=== PATIENT | female | born 1965 | race Caucasian/White ===

== ENCOUNTER 2016-08-07 09:40 | Emergency (ER) | payer SELFPAY ==
[2016-08-07 10:23] LABS: BASOPHILS 0.1 % (0.0-2.0); EOSINOPHILS 1.9 % (0-7); HEMATOCRIT 44.8 % (36.0-48.0); HEMOGLOBIN 14.6 g/dL (12-16); IMMATURE GRANULOCYTES 0.2 % (0-5); LYMPHOCYTES 21.8 % (15-50); MCH 31.5 pg (26.0-34.0); MCHC 32.6 g/dL (31.0-37.0); MCV 96.8 fL (80.0-100.0); MEAN PLATELET VOLUME 10.8 fL (7.4-10.4); MONOCYTES 5.4 % (2-11); NEUTROPHILS 70.6 % (40-80); PLATELET COUNT 395 10x3/uL (130-400); RBC 4.63 10x6/uL (4.00-5.40); RDW 13.2 % (11.5-14.5); WBC 11.3 10x3/uL (4.8-10.8)
[2016-08-07 10:52] LABS: APPEARANCE CLOUDY (CLEAR); BILIRUBIN NEGATIVE (NEGATIVE); COLOR YELLOW (YELLOW); GLUCOSE NEGATIVE (NEGATIVE); KETONE NEGATIVE (NEGATIVE); LEUKOCYTE ESTERASE 2+ (NEGATIVE); NITRITE NEGATIVE (NEGATIVE); PROTEIN TRACE mg/dL (NEGATIVE); UROBILINOGEN NORMAL (NORMAL)
[2016-08-07 10:54] LABS: BACTERIA MODERATE /hpf (NONE SEEN); MUCUS <1+ /lpf (NONE SEEN); WHITE CELLS - URINE 25-50 /hpf (0-5)
== END 2016-08-07 12:55 | disposition home or self-care (01) ==
LOC: D.ER 09:40
PROVIDERS: Emergency Medicine
DX: A60.00 Herpesviral infection of urogenital system, unspecified (principal); A59.01 Trichomonal vulvovaginitis; N93.8 Other specified abnormal uterine and vaginal bleeding

== ENCOUNTER → 2018-12-03 12:49 | Outpatient (CLI) | payer MEDICAID ==
[~2018-12-03 12:49] MED LIST: ADVAIR 250/501 DISK INH; FUROSEMIDE20 MG PO; HYDROCODON-ACE1 EA10 PO; PHENERGAN25 M1 PO; ZOFRAN8 MG PO
[2018-12-12 12:17] VITALS: BMI 33.6
== END | disposition home or self-care (01) ==
LOC: D.RT 12-02 07:00
PROVIDERS: ATTEND Thoracic Surgery (Cardiothoracic Vascular Surgery)
DX: C34.90 Malignant neoplasm of unspecified part of unspecified bronchus or lung (principal)

== ENCOUNTER → 2018-12-04 06:47 | Day surgery (SDC) | payer MEDICAID ==
[~2018-12-04] VITALS: Ht 149.9 cm; Wt 73.9 kg
[2018-12-04 07:18] LABS: HEMATOCRIT 34.8 % (36.0-48.0); HEMOGLOBIN 11.4 g/dL (12-16); MCH 30.1 pg (26.0-34.0); MCHC 32.8 g/dL (31.0-37.0); MCV 91.8 fL (80.0-100.0); MEAN PLATELET VOLUME 9.7 fL (7.4-10.4); RBC 3.79 10x6/uL (4.00-5.40); RDW 17.4 % (11.5-14.5); WBC 4.6 10x3/uL (4.8-10.8)
[2018-12-04 07:24] LABS: APTT 26.1 SECONDS (22.8-39.4); INR 1.03 (0.85-1.17)
[2018-12-04 07:30] LABS: APPEARANCE CLOUDY (CLEAR); BILIRUBIN NEGATIVE (NEGATIVE); COLOR YELLOW (YELLOW); GLUCOSE NEGATIVE (NEGATIVE); KETONE NEGATIVE (NEGATIVE); NITRITE NEGATIVE (NEGATIVE); PROTEIN NEGATIVE (NEGATIVE); RED CELLS - URINE 0-5 /hpf (0-5); SPECIFIC GRAVITY 1.015 (1.005-1.020); UROBILINOGEN NORMAL (NORMAL); WHITE CELLS - URINE 0-5 /hpf (0-5)
[2018-12-04 07:31] LABS: BACTERIA MANY /hpf (NONE SEEN); MUCUS <1+ /lpf (NONE SEEN)
[2018-12-04 07:52] LABS: CALC OSMOLALITY 277 mosm/kg (275-300); CALCIUM 8.9 mg/dL (8.5-10.1); CARBON DIOXIDE 27.1 mmol/L (21.0-32.0); CHLORIDE - SERUM 103 mmol/L (98-107); CREATININE - SERUM 0.8 mg/dL (0.6-1.3); GLUCOSE 104 mg/dL (74-106); POTASSIUM - SERUM 4.1 mmol/L (3.5-5.1); SODIUM 139 mmol/L (136-145); UREA NITROGEN 13 mg/dL (7-18); eGFR NON AFRICAN AMERICAN 79 mL/min (90-120)
[2018-12-04 07:53] VITALS: BP 110/67; Ht 149.9 cm; Wt 73.9 kg
--- NOTE | 2018-12-04 09:02 | NUR ---
0900-PHONED [facility]-SPOKE WITH KALEB. BACTRUM DS, ONE PO BID FOR 7 DAYS-FIRST DOSE TO BE GIVEN BY OUTPATIENT STAFF PRIOR TO DISCHARGE.
== END | disposition home or self-care (01) ==
LOC: D.OPS 12-02 11:00
PROVIDERS: ATTEND Thoracic Surgery (Cardiothoracic Vascular Surgery)
DX: C34.90 Malignant neoplasm of unspecified part of unspecified bronchus or lung (principal); Z53.9 Procedure and treatment not carried out, unspecified reason; Z01.812 Encounter for preprocedural laboratory examination

== ENCOUNTER 2018-12-12 10:14 | Outpatient (CLI) | payer MEDICAID ==
[~2018-12-12] VITALS: Ht 149.9 cm; Wt 75.5 kg
[2018-12-12 12:17] VITALS: BP 122/70; Ht 149.9 cm; Wt 75.5 kg
--- NOTE | 2018-12-12 12:23 | NUR ---
1100 IN AND OUT CATH USING STERILE TECHNIQUE FOR URINALYSIS. URINE IN COLLECTION BOTTLE AND SENT TO LAB
[2018-12-12 13:22] LABS: APPEARANCE HAZY (CLEAR); BACTERIA FEW /hpf (NONE SEEN); BILIRUBIN NEGATIVE (NEGATIVE); COLOR YELLOW (YELLOW); EPITHELIAL CELLS 0-5 /hpf (0-5); GLUCOSE NEGATIVE (NEGATIVE); HYALINE CAST RARE /lpf (NONE SEEN); KETONE NEGATIVE (NEGATIVE); MUCUS >1+ /lpf (NONE SEEN); NITRITE NEGATIVE (NEGATIVE); PROTEIN NEGATIVE (NEGATIVE); RED CELLS - URINE 0-5 /hpf (0-5); SPECIFIC GRAVITY 1.025 (1.005-1.020); UROBILINOGEN NORMAL (NORMAL); WHITE CELLS - URINE RARE /hpf (0-5)
== END 2018-12-12 11:17 | disposition home or self-care (01) ==
LOC: D.OPS 10:14
PROVIDERS: ATTEND Thoracic Surgery (Cardiothoracic Vascular Surgery)
DX: N39.0 Urinary tract infection, site not specified (principal)

== ENCOUNTER 2019-01-23 08:00 | Outpatient (CLI) | payer MEDICAID ==
[2018-12-12 12:17] VITALS: BMI 33.6
[2019-01-23 11:33] LABS: HEMATOCRIT 34.7 % (36.0-48.0); HEMOGLOBIN 11.6 g/dL (12-16); MCH 32.7 pg (26.0-34.0); MCHC 33.4 g/dL (31.0-37.0); MCV 97.7 fL (80.0-100.0); MEAN PLATELET VOLUME 9.5 fL (7.4-10.4); RBC 3.55 10x6/uL (4.00-5.40); RDW 15.9 % (11.5-14.5); WBC 4.9 10x3/uL (4.8-10.8)
[2019-01-23 11:38] LABS: INR 0.99 (0.85-1.17); PROTIME 12.6 SECONDS (11.6-15.0)
[2019-01-23 11:39] LABS: APTT 27.1 SECONDS (22.8-39.4)
[2019-01-23 11:44] LABS: ALBUMIN 3.4 g/dL (3.4-5.0); ALKALINE PHOSPHATASE 128 U/L (46-116); ALT (SGPT) 20 U/L (10-68); BILIRUBIN - TOTAL 0.25 mg/dL (0.2-1.3); CALC OSMOLALITY 280 mosm/kg (275-300); CARBON DIOXIDE 25.9 mmol/L (21.0-32.0); CHLORIDE - SERUM 106 mmol/L (98-107); CREATININE - SERUM 0.8 mg/dL (0.6-1.3); GLUCOSE 120 mg/dL (74-106); POTASSIUM - SERUM 3.7 mmol/L (3.5-5.1); SODIUM 140 mmol/L (136-145); UREA NITROGEN 16 mg/dL (7-18); eGFR NON AFRICAN AMERICAN 79 mL/min (90-120)
[2019-01-23 12:16] LABS: APPEARANCE SL CLDY (CLEAR); BILIRUBIN NEGATIVE (NEGATIVE); COLOR YELLOW (YELLOW); GLUCOSE NEGATIVE (NEGATIVE); KETONE SMALL mg/dL (NEGATIVE); NITRITE NEGATIVE (NEGATIVE); PROTEIN NEGATIVE (NEGATIVE); SPECIFIC GRAVITY 1.025 (1.005-1.020); UROBILINOGEN NORMAL (NORMAL)
[2019-01-23 12:17] LABS: RED CELLS - URINE 0-5 /hpf (0-5); WHITE CELLS - URINE 0-5 /hpf (0-5)
[2019-01-23 12:18] LABS: BACTERIA MODERATE /hpf (NONE SEEN); CALCIUM OXALATE CRYSTALS 25-50 /hpf (NONE SEEN); MUCUS <1+ /lpf (NONE SEEN)
== END 2019-01-23 08:01 | disposition home or self-care (01) ==
LOC: D.OPS 08:00 → D.PAN 01-27 07:30 → EDSTATUS 01-27 07:30 → D.OPS 01-27 07:30
PROVIDERS: ATTEND Thoracic Surgery (Cardiothoracic Vascular Surgery)
DX: C34.92 Malignant neoplasm of unspecified part of left bronchus or lung (principal); Z53.9 Procedure and treatment not carried out, unspecified reason; G47.30 Sleep apnea, unspecified; Z87.891 Personal history of nicotine dependence; Z79.891 Long term (current) use of opiate analgesic; Z79.899 Other long term (current) drug therapy; Z01.812 Encounter for preprocedural laboratory examination

== ENCOUNTER 2019-01-30 21:18 | Outpatient (CLI) | payer MEDICAID ==
[2019-01-30 21:07] VITALS: BMI 33.6
--- NOTE | 2019-01-30 22:05 | NUR ---
PT ARRIVED TO HAVE AN IN AND OUT CATH FOR URINE WITH C&S. WE WERE ABLE TO CATH HER EASILY AND OBTAINED THE SAMPLE WHICH WE SENT TO THE LAB. AFTER PT CLEANED UP WITH WIPES SHE WALKED OUT TO GO HOME. NO PROBLEMS ENCOUNTERED. VERY PLEASANT LADY.
[2019-01-30 22:38] LABS: APPEARANCE CLEAR (CLEAR); COLOR DK YELLOW (YELLOW); GLUCOSE NEGATIVE (NEGATIVE); KETONE NEGATIVE (NEGATIVE); NITRITE NEGATIVE (NEGATIVE); PROTEIN NEGATIVE (NEGATIVE); SPECIFIC GRAVITY 1.025 (1.005-1.020); UROBILINOGEN NORMAL (NORMAL)
[2019-01-30 22:39] LABS: BACTERIA NONE SEEN /hpf (NONE SEEN); BILIRUBIN NEGATIVE (NEGATIVE); RED CELLS - URINE 0-5 /hpf (0-5); WHITE CELLS - URINE 0-5 /hpf (0-5)
== END 2019-01-30 21:45 ==
LOC: D.OPS 21:18 → D.M3 21:23 → D.OPS 21:45
PROVIDERS: Thoracic Surgery (Cardiothoracic Vascular Surgery); ATTEND Orthopaedic Surgery
DX: N39.0 Urinary tract infection, site not specified (principal)

== ENCOUNTER 2019-02-05 08:33 | Inpatient (IN) | payer MEDICAID ==
[~2019-02-05] VITALS: Ht 149.9 cm; Wt 86.6 kg
[2019-02-05] MEDS ORDERED: ALBUTEROL SULF8.5 GM INH (08:55)
[2019-02-05] MEDS ORDERED: [UNRECOGNIZED DRUG - OTHER] PO (08:56)
[2019-02-05 11:45] LABS: HEMATOCRIT 35.3 % (36.0-48.0); MCH 33.1 pg (26.0-34.0); MCV 97.5 fL (80.0-100.0); MEAN PLATELET VOLUME 9.9 fL (7.4-10.4); RBC 3.62 10x6/uL (4.00-5.40); RDW 14.6 % (11.5-14.5); WBC 8.3 10x3/uL (4.8-10.8)
[2019-02-05 11:58] LABS: ALBUMIN 3.3 g/dL (3.4-5.0); ALKALINE PHOSPHATASE 136 U/L (46-116); ALT (SGPT) 49 U/L (10-68); BILIRUBIN - TOTAL 0.21 mg/dL (0.2-1.3); CALC OSMOLALITY 280 mosm/kg (275-300); CALCIUM 8.8 mg/dL (8.5-10.1); CARBON DIOXIDE 27.1 mmol/L (21.0-32.0); CHLORIDE - SERUM 105 mmol/L (98-107); CREATININE - SERUM 0.8 mg/dL (0.6-1.3); GLUCOSE 121 mg/dL (74-106); POTASSIUM - SERUM 3.8 mmol/L (3.5-5.1); PROTEIN - SERUM 7.2 g/dL (6.4-8.2); SODIUM 140 mmol/L (136-145); UREA NITROGEN 16 mg/dL (7-18); eGFR NON AFRICAN AMERICAN 79 mL/min (90-120)
[2019-02-05 12:10] LABS: APTT 27.8 SECONDS (22.8-39.4); PROTIME 12.7 SECONDS (11.6-15.0)
[2019-02-09] VITALS (18 sets, daily range): BP systolic 101–126; BP diastolic 42–71; BMI 36.0; BMI 37.4
[2019-02-10] VITALS (20 sets, daily range): BP systolic 94–134; BP diastolic 51–78
[2019-02-10 06:17] LABS: HEMATOCRIT 32.2 % (36.0-48.0); HEMOGLOBIN 10.6 g/dL (12-16); MCH 32.4 pg (26.0-34.0); MCHC 32.9 g/dL (31.0-37.0); MCV 98.5 fL (80.0-100.0); RBC 3.27 10x6/uL (4.00-5.40); RDW 14.4 % (11.5-14.5); WBC 14.5 10x3/uL (4.8-10.8)
[2019-02-10 06:36] LABS: ALBUMIN 2.4 g/dL (3.4-5.0); ALKALINE PHOSPHATASE 105 U/L (46-116); ALT (SGPT) 63 U/L (10-68); BILIRUBIN - TOTAL 0.31 mg/dL (0.2-1.3); CALC OSMOLALITY 283 mosm/kg (275-300); CALCIUM 7.9 mg/dL (8.5-10.1); CARBON DIOXIDE 27.8 mmol/L (21.0-32.0); CHLORIDE - SERUM 107 mmol/L (98-107); CREATININE - SERUM 0.8 mg/dL (0.6-1.3); GLUCOSE 120 mg/dL (74-106); POTASSIUM - SERUM 4.1 mmol/L (3.5-5.1); SODIUM 141 mmol/L (136-145); UREA NITROGEN 18 mg/dL (7-18); eGFR NON AFRICAN AMERICAN 79 mL/min (90-120)
--- NOTE | 2019-02-10 13:45 | OP ---
PATIENT NAME: TRISTON KOWALSKI MEDICAL RECORD: [id number] :63 LOCATION:[facility].CV08 ADMISSION DATE:02/09/19 SURGEON: RODO MARTIN MD DATE OF OPERATION: 02/09/2019 SURGEON: Rodo Martin MD PHYSICAL METALLURGIST: Chintan Cabral. OPERATION PERFORMED: 1. Left thoracotomy with left upper lobe lobectomy. 2. Mediastinal lymph node dissection. 3. Bronchoscopy. PREOPERATIVE DIAGNOSIS: Non-small cell cancer, left upper lobe. POSTOPERATIVE DIAGNOSIS: Non-small cell cancer, left upper lobe. ANESTHESIA: General endotracheal anesthesia. ESTIMATED BLOOD LOSS: 100 cc. COMPLICATIONS: None. SPECIMENS: 1. Left upper lobe. 2. Mediastinal lymph node stations from the inferior pulmonary ligament, intralobar, subcarinal, and AP window for permanent specimen. OPERATIVE COMPLICATIONS: None. CONDITION: Stable. DISPOSITION: ICU. OPERATIVE FINDINGS: 1. Good tube position by bronchoscopy with no endobronchial lesion. 2. Dense tumor adherent to the main pulmonary artery, required shaving the branches of the pulmonary artery and primarily closing the pulmonary artery. The bronchus was airtight under water. 3. Multiple anthracotic lymph nodes. INDICATIONS: Status post chemotherapy for stage IIIA nonsmall cell lung cancer. PROCEDURE IN DETAIL: The patient was brought to the operative suite. General anesthesia was obtained. Double lumen endotracheal tube was placed. Position was confirmed with bronchoscopy. The patient turned into the right lateral decubitus position with appropriate padding. Left posterolateral thoracotomy incision was made. A trapdoor type incision was made by removing a portion of the 6th rib posteriorly entering the pleura. There was no significant pleural effusion. Inferior pulmonary ligament was taken down. The hilum was freed. Branches to the lower lobe of the pulmonary artery were identified in the major fissure and then branches into the lingula were divided between staple device. Remainder of the branches were densely adherent in the tumor and the pulmonary vein from the upper lobe was densely applied to the bronchus. Individually, the OPERATIVE REPORT [id number] TRISTON KOWLASKI pulmonary artery branches were taken down with pursestring suture and oversew on the pulmonary artery until the lung had been freed. Then, half of the pulmonary vein was stapled, the other half was divided using a clamp and oversewn. Finally, the bronchus was clamped. Lower lobe was briefly ventilated. The stapler was applied. The specimen was removed. All the pulmonary artery and vein oversew sites were inspected and two of them were additionally oversewn with 6-0 Prolene. Sterile water was used for hemostasis and to check the bronchus underwater. Lymph nodes were removed from the four areas noted above, marked with clips. Chest tubes were placed apically and inferiorly. Lung was reinflated. Chest was closed with pericostal sutures to running layers of the muscle, to subcutaneous-subcuticular skin and Dermabond. The patient returned to the supine position, extubated and to ICU in good condition. TRANSINT:[id number] Voice Confirmation ID: [id number] DOCUMENT ID: [id number] RODO MARTIN MD at 1345 CC: NATALIIA ELIAS MD [id number] DICTATION DATE: 02/09/19 1456 SECTION HAND: 02/09/19 1609 ADM IN [place] [id number] [place] [id number]
--- NOTE | 2019-02-10 15:46 | MORECARE ---
CASE MANAGEMENT DISCHARGE SUMMARY PATIENT: TRISTON KOWALSKI UNIT: [id number] ADM DATE: 02/09/19 AGE: 54 : 63 SEX: F ROOM/BED: [facility] AUTHOR: DARLINE MINA PHYSICIAN: REFERRING PHYSICIAN: EUGENE MARTIN MD DATE OF SERVICE: 02/10/19 Discharge Plan Patient Name: TRISTON KOWALSKI Facility: [facility]:[place] : 1965 Planned Disposition: Inpatient Rehab Anticipated Discharge Date: Discharge Date: Expected LOS: Initial Reviewer: [email or web address] Initial Review Date: 02/10/2019 Generated: 02/10/19 4:46 pm Patient Name: TRISTON KOWALSKI Page [id number] at 1546 All edits/amendments must be made on the electronic document DICTATION DATE: 02/10/19 1546 CLAIM SERVICE REPRESENTATIVE: LUPE 02/10/19 1546 RPT#: [id number] DC DATE: STATUS: ADM IN [facility] [address] [place] [address] END OF REPORT
--- NOTE | 2019-02-10 15:56 | MORECARE ---
CASE MANAGEMENT DISCHARGE SUMMARY PATIENT: TRISTON KOWALSKI UNIT: [id number] ADM DATE: 02/09/19 AGE: 54 : 63 SEX: F ROOM/BED: [facility] AUTHOR: DARLINE MINA PHYSICIAN: REFERRING PHYSICIAN: EUGENE MARTIN MD DATE OF SERVICE: 02/10/19 Discharge Plan Patient Name: TRISTON KOWALSKI [facility] : 1965 Planned Disposition: Inpatient Rehab Anticipated Discharge Date: Discharge Date: Expected LOS: Initial Reviewer: [email or web address] Initial Review Date: 02/10/2019 Generated: 02/10/19 4:56 pm DCPIA - Discharge Planning Initial Assessment Updated by [email or web address]: Reyna Blackmon on 02/10/19 3:55 pm * Is the patient Alert and Oriented? Yes * How many steps to enter\exit or inside your home? * PCP NO PCP - DR MORA -ONC * Pharmacy [facility] / [facility] * Preadmission Environment Home with Family * ADLs Independent * Equipment None * List name and contact numbers for known caregivers / representatives who currently or will assist patient after discharge: WADE KOWALSKI - DAUGHTER- [phone] * Verbal permission to speak to the caregivers and representatives has been obtained from the patient. Yes * Community resources currently utilized None * Additional services required to return to the preadmission environment? No * Can the patient safely return to the preadmission environment? Yes * Has this patient been hospitalized within the prior 30 days at any hospital? No Last DP export: 02/10/19 2:46 p Patient Name: TRISTON KOWALSKI Page [id number] at 1556 All edits/amendments must be made on the electronic document DICTATION DATE: 02/10/191555 GAS PLANT DISPATCHER: LUPE 02/10/19 155 RPT#: [id number] DC DATE: STATUS: ADM IN [facility] [address] [place] [address] END OF REPORT
--- NOTE | 2019-02-10 16:06 | MORECARE ---
CASE MANAGEMENT DISCHARGE SUMMARY PATIENT: TRISTON KOWALSKI UNIT: [id number] ADM DATE: 02/09/19 AGE: 54 : 63 SEX: F ROOM/BED: [facility] AUTHOR: KEELEY,DOC PHYSICIAN: REFERRING PHYSICIAN: EUGENE MARTIN MD DATE OF SERVICE: 02/10/19 Discharge Plan Patient Name: TRISTON KOWALSKI Facility: [facility]:[place] : 1965 Planned Disposition: Inpatient Rehab Anticipated Discharge Date: Discharge Date: Expected LOS: Initial Reviewer: [email or web address] Initial Review Date: 02/10/2019 Generated: 02/10/19 5:06 pm Comments DCP- Discharge Planning Updated by [email or web address]: Reyna Blackmon on 02/10/19 3:[address] Patient Name: TRISTON KOWALSKI Admission Status: Urgent Accout number: [id number] Admission Date: 02-09-2019 : 1965 Admission Diagnosis: Attending: EUGENE MARTIN Current LOS: 1 Anticipated DC Date: Planned Disposition: Inpatient Rehab Primary Insurance: [place] PR[employer] OPTIONS [employer] Discharge Planning Comments: CM met with patient at bedside after explaining CM role and obtaining verbal consent. Patient lives at a home either with friends or daughter where she is independent with her care. Patient would like inpatient rehab upon discharge or SNF for rehab. After patient regains her strength her daughter stated she could stay with her. Patient will need hospital bed because she only has a mattress on floor at daughter's home. Patient feels this would be a safe discharge. CM discussed availability / needs of home health and medical equipment. Patient denies any discharge needs at this time. Patient states she will have family drive her home upon discharge. CM with [employer] Geena Farnsworth RN came to visit with patient at bedside while CM conducted d/c planning eval. CM will continue to follow and assist as needed with discharge planning / needs. Architect Marine: Reyna Blackmon DCPIA - Discharge Planning Initial Assessment Updated by [email or web address]: Reyna Blackmon on 02/10/19 3:55 pm * Is the patient Alert and Oriented? Yes * How many steps to enter\exit or inside your home? * PCP NO PCP - DR MORA -ONC * Pharmacy [facility] [address] / [facility] * Preadmission Environment Home with Family * ADLs Independent * Equipment None * List name and contact numbers for known caregivers / representatives who currently or will assist patient after discharge: WADE KOWALSKI - DAUGHTER- [phone] * Verbal permission to speak to the caregivers and representatives has been obtained from the patient. Yes * Community resources currently utilized None * Additional services required to return to the preadmission environment? No * Can the patient safely return to the preadmission environment? Yes * Has this patient been hospitalized within the prior 30 days at any hospital? No Last DP export: 02/10/19 2:56 p Patient Name: TRISTON KOWALSKI Page 39266 at 1606 All edits/amendments must be made on the electronic document DICTATION DATE: 02/10/191605 MACHINE OPERATOR FARMWORKER: LUPE 02/10/191605 RPT#: [id number] DC DATE: STATUS: ADM IN [facility] [address] [place] [address] END OF REPORT
[2019-02-11] VITALS (24 sets, daily range): BP systolic 88–134; BP diastolic 50–83
[2019-02-11 06:31] LABS: HEMOGLOBIN 9.7 g/dL (12-16); MCH 32.6 pg (26.0-34.0); MCHC 32.3 g/dL (31.0-37.0); MEAN PLATELET VOLUME 9.5 fL (7.4-10.4); RBC 2.98 10x6/uL (4.00-5.40); RDW 14.5 % (11.5-14.5)
[2019-02-11 06:44] LABS: MCV 100.7 fL (80.0-100.0); WBC 8.6 10x3/uL (4.8-10.8)
[2019-02-11 06:55] LABS: ALBUMIN 2.4 g/dL (3.4-5.0); ALKALINE PHOSPHATASE 94 U/L (46-116); ALT (SGPT) 52 U/L (10-68); BILIRUBIN - TOTAL 0.32 mg/dL (0.2-1.3); CALC OSMOLALITY 280 mosm/kg (275-300); CALCIUM 7.8 mg/dL (8.5-10.1); CARBON DIOXIDE 28.1 mmol/L (21.0-32.0); CHLORIDE - SERUM 105 mmol/L (98-107); CREATININE - SERUM 0.8 mg/dL (0.6-1.3); GLUCOSE 126 mg/dL (74-106); PROTEIN - SERUM 5.8 g/dL (6.4-8.2); SODIUM 138 mmol/L (136-145); UREA NITROGEN 20 mg/dL (7-18); eGFR NON AFRICAN AMERICAN 79 mL/min (90-120)
--- NOTE | 2019-02-11 17:46 | MORECARE ---
CASE MANAGEMENT DISCHARGE SUMMARY PATIENT: TRISTON KOWALSKI UNIT: [id number] ADM DATE: 02/09/19 AGE: 54 : 63 SEX: F ROOM/BED: D.08 AUTHOR: KEELEY,DARLINE PHYSICIAN: REFERRING PHYSICIAN: EUGENE MARTIN MD DATE OF SERVICE: 02/11/19 Discharge Plan Patient Name: TRISTON KOWALSKI Facility: [facility]:[place] : 1965 Planned Disposition: Inpatient Rehab Anticipated Discharge Date: Discharge Date: Expected LOS: Initial Reviewer: [email or web address] Initial Review Date: 02/10/2019 Generated: 02/11/19 6:45 pm Comments DCP- Discharge Planning Updated by [email or web address]: Reyna Blackmon on 02/11/19 4:[address] CM spoke with [facility] inpatient rehab. [facility] stated that they do not accept patient's insurance. Patient will need to go to [facility] or another facility upon discharge. CM will relate this information to patient, nursing staff and physician. CM will continue to follow and assist as needed with discharge planning / needs. DCP- Discharge Planning Updated by [email or web address]: Reyna Blackmon on 02/10/19 3:[address] Patient Name: TRISTON KOWALSKI Admission Status: Urgent Accout number: [id number] Admission Date: 02-09-2019 : 1965 Admission Diagnosis: Attending: EUGENE MARTIN Current LOS: 1 Anticipated DC Date: Planned Disposition: Inpatient Rehab Primary Insurance: [facility] PRIVATE OPTIONS [facility] Discharge Planning Comments: CM met with patient at bedside after explaining CM role and obtaining verbal consent. Patient lives at a home either with friends or daughter where she is independent with her care. Patient would like inpatient rehab upon discharge or SNF for rehab. After patient regains her strength her daughter stated she could stay with her. Patient will need hospital bed because she only has a mattress on floor at daughter's home. Patient feels this would be a safe discharge. CM discussed availability / needs of home health and medical equipment. Patient denies any discharge needs at this time. Patient states she will have family drive her home upon discharge. CM with [employer] Geena Javad, RN came to visit with patient at bedside while CM conducted d/c planning eval. CM will continue to follow and assist as needed with discharge planning / needs. Mica Parts Sprayer: Reyna SANDHU - Discharge Planning Initial Assessment Updated by [email or web address]: Reyna Blackmon on 02/10/19 3:55 pm * Is the patient Alert and Oriented? Yes * How many steps to enter\exit or inside your home? * PCP NO PCP - DR MORA -ONC * Pharmacy [facility] / [facility] * Preadmission Environment Home with Family * ADLs Independent * Equipment None * List name and contact numbers for known caregivers / representatives who currently or will assist patient after discharge: WADE KOWALSKI - DAUGHTER- [phone] * Verbal permission to speak to the caregivers and representatives has been obtained from the patient. Yes * Community resources currently utilized None * Additional services required to return to the preadmission environment? No * Can the patient safely return to the preadmission environment? Yes * Has this patient been hospitalized within the prior 30 days at any hospital? No Last DP export: 02/10/19 3:06 p Patient Name: TRISTON KOWALSKI Page 01611 at 1746 All edits/amendments must be made on the electronic document DICTATION DATE: 02/11/191744 ROLL SHOP SUPERVISOR: LUPE 02/11/191744 RPT#: [id number] DC DATE: STATUS: ADM IN [facility] [address] [place] [address] END OF REPORT
[2019-02-12] VITALS (25 sets, daily range): BP systolic 92–128; BP diastolic 46–74; BMI 39.4
[2019-02-12 06:21] LABS: ALBUMIN 2.1 g/dL (3.4-5.0); ALKALINE PHOSPHATASE 96 U/L (46-116); BILIRUBIN - TOTAL 0.39 mg/dL (0.2-1.3); CARBON DIOXIDE 31.7 mmol/L (21.0-32.0); CHLORIDE - SERUM 103 mmol/L (98-107); CREATININE - SERUM 0.7 mg/dL (0.6-1.3); GLUCOSE 114 mg/dL (74-106); POTASSIUM - SERUM 3.9 mmol/L (3.5-5.1); PROTEIN - SERUM 5.7 g/dL (6.4-8.2); SODIUM 138 mmol/L (136-145); eGFR NON AFRICAN AMERICAN > 90 mL/min (90-120)
[2019-02-12 06:25] LABS: ALT (SGPT) 71 U/L (10-68); CALC OSMOLALITY 275 mosm/kg (275-300); UREA NITROGEN 11 mg/dL (7-18)
[2019-02-12 06:27] LABS: HEMATOCRIT 28.6 % (36.0-48.0); HEMOGLOBIN 9.3 g/dL (12-16); MCH 32.3 pg (26.0-34.0); MCHC 32.5 g/dL (31.0-37.0); MCV 99.3 fL (80.0-100.0); RBC 2.88 10x6/uL (4.00-5.40); WBC 8.3 10x3/uL (4.8-10.8)
[2019-02-13] VITALS (24 sets, daily range): BP systolic 98–164; BP diastolic 38–102
--- NOTE | 2019-02-13 22:20 | MORECARE ---
CASE MANAGEMENT DISCHARGE SUMMARY PATIENT: TRISTON KOWALSKI UNIT: [id number] ADM DATE: 02/09/19 AGE: 54 : 63 SEX: F ROOM/BED: [facility] AUTHOR: KEELEY,DOC PHYSICIAN: REFERRING PHYSICIAN: EUGENE MARTIN MD DATE OF SERVICE: 02/13/19 Discharge Plan Patient Name: TRISTON KOWALSKI Facility: [facility]:[place] : 1965 Planned Disposition: Inpatient Rehab Anticipated Discharge Date: Discharge Date: Expected LOS: Initial Reviewer: [email or web address] Initial Review Date: 02/10/2019 Generated: 02/13/19 11:19 pm Comments DCP- Discharge Planning Updated by [email or web address]: Reyna Blackmon on 02/13/19 9:[address] Patient told nurse today that she wasn't going to Rehab she was going to go home with her daughter. CM was made aware of this change of plans after 6 pm today. Patient had told CM earlier this stay that she would need a hospital bed because her daughter just has a mattress on the floor. If patient changes her mind [facility] d/t insurance purposes. CM will continue to follow and assist as needed with discharge planning / needs. DCP- Discharge Planning Updated by [email or web address]: Reyna Blackmon on 02/11/19 4:[address] CM spoke with [facility] inpatient rehab. [facility] stated that they do not accept patient's insurance. Patient will need to go to [facility] or another facility upon discharge. CM will relate this information to patient, nursing staff and physician. CM will continue to follow and assist as needed with discharge planning / needs. DCP- Discharge Planning Updated by [id number]: Reyna Blackmon on 02/10/19 3:[address] Patient Name: TRISTON KOWALSKI Admission Status: Urgent Accout number: [id number] Admission Date: 02-09-2019 : 1965 Admission Diagnosis: Attending: EUGENE MARTIN Current LOS: 1 Anticipated DC Date: Planned Disposition: Inpatient Rehab Primary Insurance: [place] PRIVATE OPTIONS [facility] Discharge Planning Comments: CM met with patient at bedside after explaining CM role and obtaining verbal consent. Patient lives at a home either with friends or daughter where she is independent with her care. Patient would like inpatient rehab upon discharge or SNF for rehab. After patient regains her strength her daughter stated she could stay with her. Patient will need hospital bed because she only has a mattress on floor at daughter's home. Patient feels this would be a safe discharge. CM discussed availability / needs of home health and medical equipment. Patient denies any discharge needs at this time. Patient states she will have family drive her home upon discharge. CM with [employer] Geena Farnsworth RN came to visit with patient at bedside while CM conducted d/c planning eval. CM will continue to follow and assist as needed with discharge planning / needs. Test Engineering Manager: Reyna SANDHU - Discharge Planning Initial Assessment Updated by [email or web address]: Reyna Blackmon on 02/10/19 3:55 pm * Is the patient Alert and Oriented? Yes * How many steps to enter\exit or inside your home? * PCP NO PCP - DR MORA -ONC * Pharmacy [facility] [address] / [facility] * Preadmission Environment Home with Family * ADLs Independent * Equipment None * List name and contact numbers for known caregivers / representatives who currently or will assist patient after discharge: WADE KOWALSKI - DAUGHTER- [phone] * Verbal permission to speak to the caregivers and representatives has been obtained from the patient. Yes * Community resources currently utilized None * Additional services required to return to the preadmission environment? No * Can the patient safely return to the preadmission environment? Yes * Has this patient been hospitalized within the prior 30 days at any hospital? No Last DP export: 02/11/19 4:46 p Patient Name: TRISTON KOWALSKI Page 02396 at 2220 All edits/amendments must be made on the electronic document DICTATION DATE: 02/13/192218 CAN DOFFER: LUPE 02/13/192218 RPT#: [id number] DC DATE: STATUS: ADM IN [facility] [address] [place] [address] END OF REPORT
[2019-02-14] VITALS (24 sets, daily range): BP systolic 91–155; BP diastolic 39–77; Ht 149.9 cm; Wt 86.6 kg
[2019-02-14 10:08] LABS: % SATURATION 14 % (15-55); IRON 29 ug/dl (35-150); TOTAL IRON BIND CAPACITY 202 ug/dl (260-445); UNSAT IRON BIND CAPACITY 173 ug/dl (150-375)
[2019-02-15] VITALS (24 sets, daily range): BP systolic 94–147; BP diastolic 36–98
[2019-02-16] VITALS (23 sets, daily range): BP systolic 98–158; BP diastolic 37–78
--- NOTE | 2019-02-16 15:16 | MORECARE ---
CASE MANAGEMENT DISCHARGE SUMMARY PATIENT: TRISTON KOWALSKI UNIT: [id number] ADM DATE: 02/09/19 AGE: 54 : 63 SEX: F ROOM/BED: [facility] AUTHOR: KEELEY,DOC PHYSICIAN: REFERRING PHYSICIAN: EUGENE MARTIN MD DATE OF SERVICE: 02/16/19 Discharge Plan Patient Name: TRISTON KOWALSKI Facility: [facility]:[place] : 1965 Planned Disposition: Inpatient Rehab Anticipated Discharge Date: Discharge Date: Expected LOS: Initial Reviewer: [email or web address] Initial Review Date: 02/10/2019 Generated: 02/16/19 4:15 pm Comments DCP- Discharge Planning Updated by [id number]: Reyna Blackmon on 02/13/19 9:[address] Patient told nurse today that she wasn't going to Rehab she was going to go home with her daughter. CM was made aware of this change of plans after 6 pm today. Patient had told CM earlier this stay that she would need a hospital bed because her daughter just has a mattress on the floor. If patient changes her mind [facility] d/t insurance purposes. CM will continue to follow and assist as needed with discharge planning / needs. DCP- Discharge Planning Updated by [email or web address]: Reyna Blackmon on 02/11/19 4:[address] CM spoke with [facility] inpatient rehab. [facility] stated that they do not accept patient's insurance. Patient will need to go to [facility] or another facility upon discharge. CM will relate this information to patient, nursing staff and physician. CM will continue to follow and assist as needed with discharge planning / needs. DCP- Discharge Planning Updated by [email or web address]: Reyna Blackmon on 02/10/19 3:[address] Patient Name: TRISTON KOWALSKI Admission Status: Urgent Accout number: [id number] Admission Date: 02-09-2019 : 1965 Admission Diagnosis: Attending: EUGENE MARTIN Current LOS: 1 Anticipated DC Date: Planned Disposition: Inpatient Rehab Primary Insurance: [place] PRIVATE OPTIONS [facility] Discharge Planning Comments: CM met with patient at bedside after explaining CM role and obtaining verbal consent. Patient lives at a home either with friends or daughter where she is independent with her care. Patient would like inpatient rehab upon discharge or SNF for rehab. After patient regains her strength her daughter stated she could stay with her. Patient will need hospital bed because she only has a mattress on floor at daughter's home. Patient feels this would be a safe discharge. CM discussed availability / needs of home health and medical equipment. Patient denies any discharge needs at this time. Patient states she will have family drive her home upon discharge. CM with POLLO Farnsworth RN came to visit with patient at bedside while CM conducted d/c planning eval. CM will continue to follow and assist as needed with discharge planning / needs. Corporate Staff Accountant: Reyna SNADHU - Discharge Planning Initial Assessment Updated by [email or web address]: Reyna Blackmon on 02/10/19 3:55 pm * Is the patient Alert and Oriented? Yes * How many steps to enter\exit or inside your home? * PCP NO PCP - DR MORA -ONC * Pharmacy [facility] / [facility] * Preadmission Environment Home with Family * ADLs Independent * Equipment None * List name and contact numbers for known caregivers / representatives who currently or will assist patient after discharge: WADE KOWALSKI - DAUGHTER- [phone] * Verbal permission to speak to the caregivers and representatives has been obtained from the patient. Yes * Community resources currently utilized None * Additional services required to return to the preadmission environment? No * Can the patient safely return to the preadmission environment? Yes * Has this patient been hospitalized within the prior 30 days at any hospital? No External Providers External Provider: Elsa Next Contact Date: Service Request Date: Service Type: Resolution: Reviewer: Comments: Coverage Notice Reviewer: [email or web address] - Kaylan Forbes Notice Issued Date-Time: 02/16/2019 15:14 Notice Type: Patient Choice Letter Notice Delivered To: Patient Relationship to Patient: Self Geriatric Social Worker Name: Delivery Method: HAND - Hand Delivered Merissa Days: Prior Verbal Notification: Recipient Understood Notice: Yes Recipient Signature: Yes Med Rec Note Co-signed by Attending: Coverage Notice Comment: [place] OR ANY THAT TAKES INS. WILL BE STAYING WITH DAUGHTER IN [place] Last DP export: 02/13/19 9:20 p Patient Name: TRISTON KOWALSKI Page [id number] at 1516 All edits/amendments must be made on the electronic document DICTATION DATE: 02/16/191514 MOUNTING INSPECTOR: LUPE 02/16/191514 RPT#: [id number] DC DATE: STATUS: ADM IN [facility] [address] [place] [address] END OF REPORT
--- NOTE | 2019-02-16 15:29 | MORECARE ---
CASE MANAGEMENT DISCHARGE SUMMARY PATIENT: TRISTON KOWALSKI UNIT: [id number] ADM DATE: 02/09/19 AGE: 54 : 63 SEX: F ROOM/BED: [facility] AUTHOR: KEELEY,DARLINE PHYSICIAN: REFERRING PHYSICIAN: EUGENE MARTIN MD DATE OF SERVICE: 02/16/19 Discharge Plan Patient Name: TRISTON KOWALSKI Facility: [facility]:[place] : 1965 Planned Disposition: Inpatient Rehab Anticipated Discharge Date: Discharge Date: Expected LOS: Initial Reviewer: [id number] Initial Review Date: 02/10/2019 Generated: 02/16/19 4:29 pm Comments DCP- Discharge Planning Updated by [id number]: Kaylan Forbes on 02/16/19 2:[address] Patient Name: TRISTON KOWALSKI Admission Status: Urgent Accout number: [id number] Admission Date: 02-09-2019 : 1965 Admission Diagnosis:MALIGNANT NEOPLASM OF UNSP PART OF LEFT BRONCHUS OR LILIAM Attending: EUGENE MARTIN Current LOS: 7 Anticipated DC Date: Planned Disposition: Inpatient Rehab Primary Insurance: [place] [employer] [place] [facility] Discharge Planning Comments: CM MET WITH PATIENT ABOUT DC PLANNING/NEEDS. STATES HAS CHANGED HER MIND AND PLANS TO DISCHARGE TO DAUGHTER'S HOUSE. DAUGHTER IS WADE AT [phone] AND [address]IVES AT [address] [place] [address]. WALK TEST ORDERED TO ASSESS FOR 02 NEEDS AT [place]. PATIENT ALSO WANTS A HOSPITAL BED AND IF NEBS ARE ORDERED WILL NEED A NEBULIZER. CARMINE SIGNED FOR [facility] OR ANY DME THAT ACCEPTS HER INSURANCE. CM WILL FOLLOW AND ASSIST. ANTICIPATE DC POSSIBLY TOMORROW. Fighter Pilot: Kaylan Forbes DCP- Discharge Planning Updated by [id number]: Reyna Blackmon on 02/13/19 9:[address] Patient told nurse today that she wasn't going to Rehab she was going to go home with her daughter. CM was made aware of this change of plans after 6 pm today. Patient had told CM earlier this stay that she would need a hospital bed because her daughter just has a mattress on the floor. If patient changes her mind she will need to go to [facility] for Inpatient care d/t insurance purposes. CM will continue to follow and assist as needed with discharge planning / needs. DCP- Discharge Planning Updated by [email or web address]: Reyna Blackmon on 02/11/19 4:[address] CM spoke with Coty @ [facility] inpatient rehab. Coty stated that they do not accept patient's insurance. Patient will need to go to [facility] or another facility upon discharge. CM will relate this information to patient, nursing staff and physician. CM will continue to follow and assist as needed with discharge planning / needs. DCP- Discharge Planning Updated by [id number]: Reyna Blackmon on 02/10/19 3:[address] Patient Name: TRISTON KOWALSKI Admission Status: Urgent Accout number: [id number] Admission Date: 02-09-2019 : 1965 Admission Diagnosis: Attending: EUGENE MARTIN Current LOS: 1 Anticipated DC Date: Planned Disposition: Inpatient Rehab Primary Insurance: [facility] PRIVATE OPTIONS [facility] Discharge Planning Comments: CM met with patient at bedside after explaining CM role and obtaining verbal consent. Patient lives at a home either with friends or daughter where she is independent with her care. Patient would like inpatient rehab upon discharge or SNF for rehab. After patient regains her strength her daughter stated she could stay with her. Patient will need hospital bed because she only has a mattress on floor at daughter's home. Patient feels this would be a safe discharge. CM discussed availability / needs of home health and medical equipment. Patient denies any discharge needs at this time. Patient states she will have family drive her home upon discharge. CM with POLLO Farnsworth RN came to visit with patient at bedside while CM conducted d/c planning eval. CM will continue to follow and assist as needed with discharge planning / needs. Fighter Pilot: Reyna Blackmon DCPIA - Discharge Planning Initial Assessment Updated by [id number]: Reyna Blackmon on 02/10/19 3:55 pm * Is the patient Alert and Oriented? Yes * How many steps to enter\exit or inside your home? * PCP NO PCP - DR MORA -ONC * Pharmacy [facility] * Preadmission Environment Home with Family * ADLs Independent * Equipment None * List name and contact numbers for known caregivers / representatives who currently or will assist patient after discharge: WADE KOWALSKI - DAUGHTER- [phone] * Verbal permission to speak to the caregivers and representatives has been obtained from the patient. Yes * Community resources currently utilized None * Additional services required to return to the preadmission environment? No * Can the patient safely return to the preadmission environment? Yes * Has this patient been hospitalized within the prior 30 days at any hospital? No Coverage Notice Reviewer: [id number] Ana Maria Forbes Notice Issued Date-Time: 02/16/2019 15:14 Notice Type: Patient Choice Letter Notice Delivered To: Patient Relationship to Patient: Self Lock Expert Name: Delivery Method: HAND - Hand Delivered Merissa Days: Prior Verbal Notification: Recipient Understood Notice: Yes Recipient Signature: Yes Med Rec Note Co-signed by Attending: Coverage Notice Comment: [facility] OR ANY THAT TAKES INS. [facility] DP export: 02/16/19 2:16 pm Patient Name: TRISTON KOWALSKI Page [id number] at 1529 All edits/amendments must be made on the electronic document DICTATION DATE: 02/16/19 1529 TEXTILE CLOTHING AND FOOTWEAR MECHANIC: LUPE 02/16/19 1529 RPT#: [id number] DC DATE: STATUS: ADM IN [facility] [address] [place] [address] END OF REPORT
[2019-02-17] VITALS (10 sets, daily range): BP systolic 98–155; BP diastolic 46–73
--- NOTE | 2019-02-17 09:46 | MORECARE ---
CASE MANAGEMENT DISCHARGE SUMMARY PATIENT: TRISTON KOWALSKI UNIT: [id number] ADM DATE: 02/09/19 AGE: 54 : 63 SEX: F ROOM/BED: [facility] AUTHOR: KEELEY,DARLINE PHYSICIAN: REFERRING PHYSICIAN: EUGENE MARTIN MD DATE OF SERVICE: 02/17/19 Discharge Plan Patient Name: TRISTON KOWALSKI Facility: [facility]:[place] : 1965 Planned Disposition: Inpatient Rehab Anticipated Discharge Date: Discharge Date: Expected LOS: Initial Reviewer: [email or web address] Initial Review Date: 02/10/2019 Generated: 02/17/19 10:45 am Comments DCP- Discharge Planning Updated by [email or web address]: Kaylan Forbes on 02/16/19 2:[address] Patient Name: TRISTON KOWALSKI Admission Status: Urgent Accout number: [id number] Admission Date: 02-09-2019 : 1965 Admission Diagnosis:MALIGNANT NEOPLASM OF UNSP PART OF LEFT BRONCHUS OR LILIAM Attending: EUGENE MARTIN Current LOS: 7 Anticipated DC Date: Planned Disposition: Inpatient Rehab [place] Insurance: [place] [employer] [place] [facility] Discharge Planning Comments: CM MET WITH PATIENT ABOUT DC PLANNING/NEEDS. STATES HAS CHANGED HER MIND AND PLANS TO DISCHARGE TO DAUGHTER'S HOUSE. DAUGHTER IS WADE AT [phone] AND [address]ES [address] [address]. WALK TEST ORDERED TO ASSESS FOR 02 NEEDS AT [place]. PATIENT ALSO WANTS A HOSPITAL BED AND IF NEBS ARE ORDERED WILL NEED A NEBULIZER. CARMINE SIGNED FOR [facility] OR ANY DME THAT ACCEPTS HER INSURANCE. CM WILL FOLLOW AND ASSIST. ANTICIPATE DC POSSIBLY TOMORROW. Lease Operator: Kaylan Forbes DCP- Discharge Planning Updated by [id number]: Reyna Blackmon on 02/13/19 9:[address] Patient told nurse today that she wasn't going to Rehab she was going to go home with her daughter. CM was made aware of this change of plans after 6 pm today. Patient had told CM earlier this stay that she would need a hospital bed because her daughter just has a mattress on the floor. If patient changes her mind she will need to go to [facility] for Inpatient care d/t insurance purposes. CM will continue to follow and assist as needed with discharge planning / needs. DCP- Discharge Planning Updated by [email or web address]: Reyna Blackmon on 02/11/19 4:[address] CM spoke with Coty @ [facility] inpatient rehab. Coty stated that they do not accept patient's insurance. Patient will need to go to [facility] or another facility upon discharge. CM will relate this information to patient, nursing staff and physician. CM will continue to follow and assist as needed with discharge planning / needs. DCP- Discharge Planning Updated by [id number]: Reyna Blackmon on 02/10/19 3:[address] Patient Name: TRISTON KOWALSKI Admission Status: Urgent Accout number: [id number] Admission Date: 02-09-2019 : 1965 Admission Diagnosis: Attending: EUGENE MARTIN Current LOS: 1 Anticipated DC Date: Planned Disposition: Inpatient Rehab Primary Insurance: [facility] PRIVATE OPTIONS [facility] Discharge Planning Comments: CM met with patient at bedside after explaining CM role and obtaining verbal consent. Patient lives at a home either with friends or daughter where she is independent with her care. Patient would like inpatient rehab upon discharge or SNF for rehab. After patient regains her strength her daughter stated she could stay with her. Patient will need hospital bed because she only has a mattress on floor at daughter's home. Patient feels this would be a safe discharge. CM discussed availability / needs of home health and medical equipment. Patient denies any discharge needs at this time. Patient states she will have family drive her home upon discharge. CM with POLLO Farnsworth RN came to visit with patient at bedside while CM conducted d/c planning eval. CM will continue to follow and assist as needed with discharge planning / needs. Lease Operator: Reyna Blackmon DCPIA - Discharge Planning Initial Assessment Updated by [id number]: Reyna Blackmon on 02/10/19 3:55 pm * Is the patient Alert and Oriented? Yes * How many steps to enter\exit or inside your home? * PCP NO PCP - DR MORA -ONC * Pharmacy [facility] * Preadmission Environment Home with Family * ADLs Independent * Equipment None * List name and contact numbers for known caregivers / representatives who currently or will assist patient after discharge: WADE KOWALSKI - DAUGHTER- [phone] * Verbal permission to speak to the caregivers and representatives has been obtained from the patient. Yes * Community resources currently utilized None * Additional services required to return to the preadmission environment? No * Can the patient safely return to the preadmission environment? Yes * Has this patient been hospitalized within the prior 30 days at any hospital? No External Providers External Provider: Elsa Next Contact Date: Service Request Date: Service Type: Resolution: Reviewer: Comments: Coverage Notice Reviewer: [id number] Ana Maria Forbes Notice Issued Date-Time: 02/16/2019 15:14 Notice Type: Patient Choice Letter Notice Delivered To: Patient Relationship to Patient: Self Assistant In Nursing Name: Delivery Method: HAND - Hand Delivered Merissa Days: Prior Verbal Notification: Recipient Understood Notice: Yes Recipient Signature: Yes Med Rec Note Co-signed by Attending: Coverage Notice Comment: [facility] OR ANY THAT TAKES INS. WILL BE STAYING WITH DAUGHTER IN [facility] DP export: 02/16/19 2:29 pm Patient Name: TRISTON KOWALSKI Page [id number] at 0946 All edits/amendments must be made on the electronic document DICTATION DATE: 02/17/19944 UPHOLSTERY MECHANIC: LUPE 02/17/19944 RPT#: [id number] DC DATE: STATUS: ADM IN [facility] [address] [place] [address] END OF REPORT
[2019-02-17] MEDS ORDERED: ASPIRIN EC81 M1 PO (11:06)
[2019-02-17] MEDS ORDERED: HYDROCODON-ACE1 EA10 PO (11:09)
--- NOTE | 2019-02-17 12:21 | MORECARE ---
CASE MANAGEMENT DISCHARGE SUMMARY PATIENT: TRISTON KOWALSKI UNIT: [id number] ADM DATE: 02/09/19 AGE: 54 : 63 SEX: F [facility] AUTHOR: KEELEY,DARLINE PHYSICIAN: REFERRING PHYSICIAN: EUGENE MARITN MD DATE OF SERVICE: 02/17/19 Discharge Plan Patient Name: TRISTON KOWALSKI Facility: [facility]:[place] : 1965 Planned Disposition: Inpatient Rehab Anticipated Discharge Date: Discharge Date: Expected LOS: Initial Reviewer: [email or web address] Initial Review Date: 02/10/2019 Generated: 02/17/19 1:21 pm Comments DCP- Discharge Planning Updated by [id number]: Reyna Blackmon on 02/17/19 11:[address] CM faxed records to [facility] [phone] called and spoke with Yohan. Yohan stated they would be delivering portable 02 shortly to patient. [facility] contacted Macarena with [facility] to let her know about patient's plan of care change. Patient is planning to discharge to daughter's home today. has called Dr. Mora office to see if they would order HH services and follow patient since she doesn't have a PCP. Patient signed CARMINE for first available for HH. DCP- Discharge Planning Updated by [id number]: Kaylan Forbes on 02/16/19 2:[address] Patient Name: TRISTON KOWALSKI Admission Status: Urgent Accout number: [id number] Admission Date: 02-09-2019 : 1965 Admission Diagnosis:MALIGNANT NEOPLASM OF UNSP PART OF LEFT BRONCHUS OR LILIAM Attending: EUGENE MARTIN Current LOS: 7 Anticipated DC Date: Planned Disposition: Inpatient Rehab Primary Insurance: [place] [employer] [place] [facility] Discharge Planning Comments: CM MET WITH PATIENT ABOUT DC PLANNING/NEEDS. STATES HAS CHANGED HER MIND AND PLANS TO DISCHARGE TO DAUGHTER'S HOUSE. DAUGHTER IS WADE AT [phone] AND [address]IVES AT [address] [address]. WALK TEST ORDERED TO ASSESS FOR 02 NEEDS AT [place]. PATIENT ALSO WANTS A HOSPITAL BED AND IF NEBS ARE ORDERED WILL NEED A NEBULIZER. CARMINE SIGNED FOR [facility] OR ANY DME THAT ACCEPTS HER INSURANCE. CM WILL FOLLOW AND ASSIST. ANTICIPATE DC POSSIBLY TOMORROW. Surgical Device Sales Representative: Kaylan Forbes DCP- Discharge Planning Updated by [id number]: Reyna Blackmon on 02/13/19 9:[address] Patient told nurse today that she wasn't going to Rehab she was going to go home with her daughter. CM was made aware of this change of plans after 6 pm today. Patient had told CM earlier this stay that she would need a hospital bed because her daughter just has a mattress on the floor. If patient changes her mind she will need to go to [facility] for Inpatient care d/t insurance purposes. CM will continue to follow and assist as needed with discharge planning / needs. DCP- Discharge Planning Updated by [email or web address]: Reyna Blackmon on 02/11/19 4:[address] CM spoke with Coty @ [facility] inpatient rehab. Coty stated that they do not accept patient's insurance. Patient will need to go to [facility] or another facility upon discharge. CM will relate this information to patient, nursing staff and physician. CM will continue to follow and assist as needed with discharge planning / needs. DCP- Discharge Planning Updated by [id number]: Reyna Blackmon on 02/10/19 3:[address] Patient Name: TRISTON KOWALSKI Admission Status: Urgent Accout number: [id number] Admission Date: 02-09-2019 : 1965 Admission Diagnosis: Attending: EUGENE MARTIN Current LOS: 1 Anticipated DC Date: Planned Disposition: Inpatient Rehab Primary Insurance: [facility] PRIVATE OPTIONS [facility] Discharge Planning Comments: CM met with patient at bedside after explaining CM role and obtaining verbal consent. Patient lives at a home either with friends or daughter where she is independent with her care. Patient would like inpatient rehab upon discharge or SNF for rehab. After patient regains her strength her daughter stated she could stay with her. Patient will need hospital bed because she only has a mattress on floor at daughter's home. Patient feels this would be a safe discharge. CM discussed availability / needs of home health and medical equipment. Patient denies any discharge needs at this time. Patient states she will have family drive her home upon discharge. CM with POLLO Farnsworth RN came to visit with patient at bedside while CM conducted d/c planning eval. CM will continue to follow and assist as needed with discharge planning / needs. Surgical Device Sales Representative: Reyna Blackmon DCPIA - Discharge Planning Initial Assessment Updated by [id number]: Reyna Blackmon on 02/10/19 3:55 pm * Is the patient Alert and Oriented? Yes * How many steps to enter\exit or inside your home? * PCP NO PCP - DR MORA -ONC * Pharmacy [facility] * Preadmission Environment Home with Family * ADLs Independent * Equipment None * List name and contact numbers for known caregivers / representatives who currently or will assist patient after discharge: WADE KOWALSKI - DAUGHTER- [phone] * Verbal permission to speak to the caregivers and representatives has been obtained from the patient. Yes * Community resources currently utilized None * Additional services required to return to the preadmission environment? No * Can the patient safely return to the preadmission environment? Yes * Has this patient been hospitalized within the prior 30 days at any hospital? No Coverage Notice Reviewer: [email or web address] Ana Maria Forbes Notice Issued Date-Time: 02/16/2019 15:14 Notice Type: Patient Choice Letter Notice Delivered To: Patient Relationship to Patient: Self Learning Center Instructor Name: Delivery Method: HAND - Hand Delivered Merissa Days: Prior Verbal Notification: Recipient Understood Notice: Yes Recipient Signature: Yes Med Rec Note Co-signed by Attending: Coverage Notice Comment: DME-[facility] OR ANY THAT TAKES INS. WILL BE STAYING WITH DAUGHTER IN [facility] DP export: 02/17/19 8:46 am Patient Name: TRISTON KOWALSKI Page [id number] at 1221 All edits/amendments must be made on the electronic document DICTATION DATE: 02/17/19 1221 CHIEF COMPLIANCE OFFICER: LUPE 02/17/19 1221 RPT#: [id number] DC DATE: STATUS: ADM IN [facility] [address] [place] [address] END OF REPORT
--- NOTE | 2019-02-17 13:09 | MORECARE ---
CASE MANAGEMENT DISCHARGE SUMMARY PATIENT: TRISTON KOWALSKI UNIT: [id number] ADM DATE: 02/09/19 AGE: 54 : 63 SEX: F ROOM/BED: D.08 AUTHOR: KEELEY,DOC PHYSICIAN: REFERRING PHYSICIAN: EUGENE MARTIN MD DATE OF SERVICE: 02/17/19 Discharge Plan Patient Name: TRISTON KOWALSKI Facility: [facility]:[place] : 1965 Planned Disposition: Home Anticipated Discharge Date: Discharge Date: Expected LOS: Initial Reviewer: [email or web address] Initial Review Date: 02/10/2019 Generated: 02/17/19 2:08 pm Comments DCP- Discharge Planning Updated by [id number]: Reyna Blackmon on 02/17/19 12:[address] CM faxed records to [facility] [phone] called and spoke with Yohan. Yohan stated they would be delivering portable 02 shortly to patient. CM contacted Macarena with [facility] to let her know about patient's plan of care change. Patient is planning to discharge to daughter's home today. Vasquez Kowalski [phone] Mora office to see if they would order HH services and follow patient since she doesn't have a PCP. Patient signed CARMINE for first available for HH. Patient daughter is requesting shower chair and BSC. CM will check with Dr. Mora office to see if they will order those items for patient along with home health. Awaiting call back from Dr. Mora office. [phone] patient stated she is going to stay with a friend for a night or two until daughter gets everything set up at home. Patient states that her friend has 02 at home that his used. Vasquez is getting in touch with [facility] about delivery of home 02 and hospital bed. CM will continue to follow and assist as needed with discharge planning / needs. DCP- Discharge Planning Updated by [email or web address]: Kaylan Forbes on 02/16/19 2:[address] Patient Name: TRISTON KOWALSKI Admission Status: Urgent Accout number: [id number] Admission Date: 02-09-2019 : 1965 Admission Diagnosis:MALIGNANT NEOPLASM OF UNSP PART OF LEFT BRONCHUS OR LILIAM Attending: EUGENE MARTIN Current LOS: 7 Anticipated DC Date: Planned Disposition: Inpatient Rehab Primary Insurance: [employer] [place] PRIVATE OPTIONS JG Discharge Planning Comments: CM MET WITH PATIENT ABOUT DC PLANNING/NEEDS. STATES HAS CHANGED HER MIND AND PLANS TO DISCHARGE TO DAUGHTER'S HOUSE. DAUGHTER IS VASQUEZ AT [phone] AND LIVES AT [address] [facility] [address]. WALK TEST ORDERED TO ASSESS FOR 02 NEEDS AT [place]. PATIENT ALSO WANTS A HOSPITAL BED AND IF NEBS ARE ORDERED WILL NEED A NEBULIZER. CARMINE SIGNED FOR [facility] OR ANY DME THAT ACCEPTS HER INSURANCE. CM WILL FOLLOW AND ASSIST. ANTICIPATE DC POSSIBLY TOMORROW. Floating [employer] Gang Supervisor: Kaylan Forbes DCP- Discharge Planning Updated by [email or web address]: Reyna Blackmon on 02/13/19 9:[address] Patient told nurse today that she wasn't going to Rehab she was going to go home with her daughter. CM was made aware of this change of plans after 6 pm today. Patient had told CM earlier this stay that she would need a hospital bed because her daughter just has a mattress on the floor. If patient changes her mind she will need [facility] d/t insurance purposes. CM will continue to follow and assist as needed with discharge planning / needs. DCP- Discharge Planning Updated by [id number]: Reyna Blackmon on 02/11/19 4:[address] CM spoke with Coty @ [facility] inpatient rehab. Coty stated that they do not accept patient's insurance. Patient will need to go to [facility] or another facility upon discharge. CM will relate this information to patient, nursing staff and physician. CM will continue to follow and assist as needed with discharge planning / needs. DCP- Discharge Planning Updated by [id number]: Reyna Blackmon on 02/10/19 3:[address] Patient Name: TRISTON KOWALSKI Admission Status: Urgent Accout number: [id number] Admission Date: 02-09-2019 : 1965 Admission Diagnosis: Attending: EUGENE MARTIN Current LOS: 1 Anticipated DC Date: Planned Disposition: Inpatient Rehab Primary Insurance: [employer] [place] PRIVATE OPTIONS JG Discharge Planning Comments: CM met with patient at bedside after explaining CM role and obtaining verbal consent. Patient lives at a home either with friends or daughter where she is independent with her care. Patient would like inpatient rehab upon discharge or SNF for rehab. After patient regains her strength her daughter stated she could stay with her. Patient will need hospital bed because she only has a mattress on floor at daughter's home. Patient feels this would be a safe discharge. CM discussed availability / needs of home health and medical equipment. Patient denies any discharge needs at this time. Patient states she will have family drive her home upon discharge. CM with [facility] Farnsworth RN came to visit with patient at bedside while CM conducted d/c planning eval. CM will continue to follow and assist as needed with discharge planning / needs. Floating [employer] Gang Supervisor: Reyna SANDHU - Discharge Planning Initial Assessment Updated by [id number]: Reyna Blackmon on 02/10/19 3:55 pm * Is the patient Alert and Oriented? Yes * How many steps to enter\exit or inside your home? * PCP NO PCP - DR MORA -ONC * [facility]acy [facility] * Preadmission Environment Home with Family * ADLs Independent * Equipment None * List name and contact numbers for known caregivers / representatives who currently or will assist patient after discharge: VASQUEZ KOWALSKI - DAUGHTER- [phone] * Verbal permission to speak to the caregivers and representatives has been obtained from the patient. Yes * Community resources currently utilized None * Additional services required to return to the preadmission environment? No * Can the patient safely return to the preadmission environment? Yes * Has this patient been hospitalized within the prior 30 days at any hospital? No Coverage Notice Reviewer: [email or web address] Ana Maria Forbes Notice Issued Date-Time: 02/16/2019 15:14 Notice Type: Patient Choice Letter Notice Delivered To: Patient Relationship to Patient: Self Speech Therapist Early Intervention Name: Delivery Method: HAND - Hand Delivered Merissa Days: Prior Verbal Notification: Recipient Understood Notice: Yes Recipient Signature: Yes Med Rec Note Co-signed by Attending: Coverage Notice Comment: [facility]ME-[facility] OR ANY THAT TAKES INS. WILL BE STAYING WITH DAUGHTER IN [facility] DP export: 02/17/19 11:21 am Patient Name: TRISTON KOWALSKI Page [phone] at 1309 All edits/amendments must be made on the electronic document DICTATION DATE: 02/17/191307 CONTRACTING OFFICER: LUPE 02/17/19 1308 RPT#: [id number] [place] DATE: STATUS: ADM IN [facility] [address] [place] [address] END OF REPORT
--- NOTE | 2019-02-17 13:36 | MORECARE ---
CASE MANAGEMENT DISCHARGE SUMMARY PATIENT: TRISTON KOWALSKI UNIT: [id number] ADM DATE: 02/09/19 AGE: 54 : 63 SEX: F ROOM/BED: D.08 AUTHOR: KEELEY,DOC PHYSICIAN: REFERRING PHYSICIAN: EUGENE MARTIN MD DATE OF SERVICE: 02/17/19 Discharge Plan Patient Name: TRISTON OKWALSKI Facility: [facility]:[place] : 1965 Planned Disposition: Home Anticipated Discharge Date: Discharge Date: 02/17/2019 Expected LOS: Initial Reviewer: [email or web address] Initial Review Date: 02/10/2019 Generated: 02/17/19 2:35 pm Comments DCP- Discharge Planning Updated by [id number]: Reyna Blackmon on 02/17/19 12:[address] CM faxed records to [facility] [phone] called and spoke with Yohan. Yohan stated they would be delivering portable 02 shortly to patient. CM contacted Macarena with [facility] to let her know about patient's plan of care change. Patient is planning to discharge to daughter's home today. Vasquez Kowalski [phone] Mora office to see if they would order HH services and follow patient since she doesn't have a PCP. Patient signed CARMINE for first available for HH. Patient daughter is requesting shower chair and BSC. CM will check with Dr. Mora office to see if they will order those items for patient along with home health. Awaiting call back from Dr. Mora office. [phone] patient stated she is going to stay with a friend for a night or two until daughter gets everything set up at home. Patient states that her friend has 02 at home that his used. Vasquez is getting in touch with [facility] about delivery of home 02 and hospital bed. CM will continue to follow and assist as needed with discharge planning / needs. 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 STATES HAS CHANGED HER MIND AND PLANS TO DISCHARGE TO DAUGHTER'S HOUSE. DAUGHTER IS VASQUEZ AT [phone] AND [address] [address]. WALK TEST ORDERED [place] 02 NEEDS AT [place]. PATIENT ALSO WANTS A HOSPITAL BED AND IF NEBS ARE ORDERED WILL NEED A NEBULIZER. CARMINE SIGNED FOR [facility] OR ANY DME THAT ACCEPTS HER INSURANCE. CM WILL FOLLOW AND ASSIST. ANTICIPATE DC POSSIBLY TOMORROW. Covered Button Maker: Kaylan Forbes DCP- Discharge Planning Updated by [email or web address]: Reyna Blackmon on 02/13/19 9:[address] Patient told nurse today that she wasn't going to Rehab she was going to go home with her daughter. CM was made aware of this change of plans after 6 pm today. Patient had told CM earlier this stay that she would need a hospital bed because her daughter just has a mattress on the floor. If patient changes her mind she will need to [facility] for [facility] care d/t insurance purposes. CM will continue to follow and assist as needed with discharge planning / needs. DCP- Discharge Planning Updated by [id number]: Reyna Blackmon on 02/11/19 4:[address] CM spoke with Coty @ [facility] inpatient rehab. Coty stated that they do not accept patient's insurance. Patient will need to go to [facility] or another facility upon discharge. CM will relate this information to patient, nursing staff and physician. CM will continue to follow and assist as needed with discharge planning / needs. DCP- Discharge Planning Updated by [email or web address]: Reyna Blackmon on 02/10/19 3:[address] Patient Name: TRISTON KOWALSKI Admission Status: Urgent Accout number: [id number] Admission Date: 02-09-2019 : 1965 Admission Diagnosis: Attending: EUGENE MARTIN Current LOS: 1 Anticipated DC Date: Planned Disposition: Inpatient Rehab Primary Insurance: [employer] [place] PRIVATE OPTIONS J[place] Discharge Planning Comments: CM met with patient at bedside after explaining CM role and obtaining verbal consent. Patient lives at a home either with friends or daughter where she is independent with her care. Patient would like inpatient rehab upon discharge or SNF for rehab. After patient regains her strength her daughter stated she could stay with her. Patient will need hospital bed because she only has a mattress on floor at daughter's home. Patient feels this would be a safe discharge. CM discussed availability / needs of home health and medical equipment. Patient denies any discharge needs at this time. Patient states she will have family drive her home upon discharge. CM with [facility] Farnsworth RN came to visit with patient at bedside while CM conducted d/c planning eval. CM will continue to follow and assist as needed with discharge planning / needs. Covered Button Maker: Reyna SANDHU - Discharge Planning Initial Assessment Updated by [email or web address]: Reyna Blackmon on 02/10/19 3:55 pm * Is the patient Alert and Oriented? Yes * How many steps to enter\exit or inside your home? * PCP NO PCP - DR MORA -ONC * Pharmacy [facility] * Preadmission Environment Home with Family * ADLs Independent * Equipment None * List name and contact numbers for known caregivers / representatives who currently or will assist patient after discharge: VASQUEZ KOWALSKI - DAUGHTER- [phone] * Verbal permission to speak to the caregivers and representatives has been obtained from the patient. Yes * Community resources currently utilized None * Additional services required to return to the preadmission environment? No * Can the patient safely return to the preadmission environment? Yes * Has this patient been hospitalized within the prior 30 days at any hospital? No Coverage Notice Reviewer: [id number] Ana Maria Forbes Notice Issued Date-Time: 02/16/2019 15:14 Notice Type: Patient Choice Letter Notice Delivered To: Patient Relationship to Patient: Self Automatic Paint Sprayer Operator Name: Delivery Method: HAND - Hand Delivered Merissa Days: Prior Verbal Notification: Recipient Understood Notice: Yes Recipient Signature: Yes Med Rec Note Co-signed by Attending: Coverage Notice Comment: [facility]ME-[facility] OR ANY THAT TAKES INS. WILL BE STAYING WITH DAUGHTER IN [facility] DP export: 02/17/19 12:09 pm Patient Name: TRISTON KOWALSKI Page [phone] at 1336 All edits/amendments must be made on the electronic document DICTATION DATE: 02/17/196 PIG HANDLER: LUPE 02/17/19 1335 RPT#: [id number] DC DATE:02/17/19 STATUS: DIS IN [facility] [address] [facility] [place] [address] END OF REPORT
--- NOTE | 2019-02-17 14:05 | MORECARE ---
CASE MANAGEMENT DISCHARGE SUMMARY PATIENT: TRISTON KOWALSKI UNIT: [id number] ADM DATE: 02/09/19 AGE: 54 : 63 SEX: F ROOM/BED: D.08 AUTHOR: DARLINE MINA PHYSICIAN: REFERRING PHYSICIAN: EUGENE MARTIN MD DATE OF SERVICE: 02/17/19 Discharge Plan Patient Name: TRISTON KOWALSKI Facility: [facility]:[place] : 1965 Planned Disposition: Home Anticipated Discharge Date: Discharge Date: 02/17/2019 Expected LOS: Initial Reviewer: [id number] Initial Review Date: 02/10/2019 Generated: 02/17/19 3:04 pm Comments DCP- Discharge Planning Updated by [id number]: Reyna Blackmon on 02/17/19 1:[address] CM received a call back from Dr. Mora office regarding HH and DME needs. Dr. Mora stated that the patient will need to get PCP right for HH and DME. CM explained that patient doesn't have a PCP that was the reason CM was contacting them. CM will contact patient to let her know this information. CM with [facility] Macarena is aware that patient needs a PCP. CM will continue to follow and assist as needed with discharge planning / needs. DCP- Discharge Planning Updated by [email or web address]: Reyna Blackmon on 02/17/19 12:[address] CM faxed records to [facility] [phone] called and spoke with Yohan. Yohan stated they would be delivering portable 02 shortly to patient. CM contacted Macarena with [facility] to let her know about patient's plan of care change. Patient is planning to discharge to daughter's home today. Vasquez Kowalski [phone] Mora office to see if they would order HH services and follow patient since she doesn't have a PCP. Patient signed CARMINE for first available for HH. Patient daughter is requesting shower chair and BSC. CM will check with Dr. Mora office to see if they will order those items for patient along with home health. Awaiting call back from Dr. Mora office. [phone] patient stated she is going to stay with a friend for a night or two until daughter gets everything set up at home. Patient states that her friend has 02 at home that his used. Vasquez is getting in touch with [facility] about delivery of home 02 and hospital bed. CM will continue to follow and assist as needed with discharge planning / needs. DCP- Discharge Planning Updated by [email or web address]: Kaylan Forbes on 02/16/19 2:[address] Patient Name: TRISTON KOWALSKI Admission Status: Urgent Accout number: [id number] Admission Date: 02-09-2019 : 1965 Admission Diagnosis:MALIGNANT NEOPLASM OF UNSP PART OF LEFT BRONCHUS OR LILIAM Attending: EUGENE MARTIN Current LOS: 7 Anticipated DC Date: Planned Disposition: Inpatient Rehab Primary Insurance: [place] PRIVATE OPT[place] [facility] Discharge Planning Comments: CM MET WITH PATIENT ABOUT DC PLANNING/NEEDS. STATES HAS CHANGED HER MIND AND PLANS TO DISCHARGE TO DAUGHTER'S HOUSE. DAUGHTER IS VASQUEZ AT [phone] AND LIVES AT [facility] [address] [address]. WALK TEST ORDERED [place]ESS [place] 02 NEEDS AT [place]. PATIENT ALSO WANTS A HOSPITAL BED AND IF NEBS ARE ORDERED WILL NEED A NEBULIZER. CARMINE SIGNED FOR [facility] OR ANY DME THAT ACCEPTS HER INSURANCE. CM WILL FOLLOW AND ASSIST. ANTICIPATE DC POSSIBLY TOMORROW. [employer]otive [employer] Counterperson: Kaylan Forbes DCP- Discharge Planning Updated by [id number]: Reyna Blackmon on 02/13/19 9:[address] Patient told nurse today that she wasn't going to Rehab she was going to go home with her daughter. CM was made aware of this change of plans after 6 pm today. Patient had told CM earlier this stay that she would need a hospital bed because her daughter just has a mattress on the floor. If patient changes her mind she will need to go to [facility] for Inpatient care d/t insurance purposes. CM will continue to follow and assist as needed with discharge planning / needs. DCP- Discharge Planning Updated by [id number]: Reyna Blackmon on 02/11/19 4:[address] CM spoke with Coty @ [facility] inpatient rehab. Coty stated that they do not accept patient's insurance. Patient will need to go to [facility] or another facility upon discharge. CM will relate this information to patient, nursing staff and physician. CM will continue to follow and assist as needed with discharge planning / needs. DCP- Discharge Planning Updated by [id number]: Reyna Blackmon on 02/10/19 3:[address] Patient Name: TRISTON KOWALSKI Admission Status: Urgent Accout number: [id number] Admission Date: 02-09-2019 : 1965 Admission Diagnosis: Attending: EUGENE MARTIN Current LOS: 1 Anticipated DC Date: Planned Disposition: Inpatient Rehab Primary Insurance: [facility] PRIVATE OPTIONS [facility] Discharge Planning Comments: CM met with patient at bedside after explaining CM role and obtaining verbal consent. Patient lives at a home either with friends or daughter where she is independent with her care. Patient would like inpatient rehab upon discharge or SNF for rehab. After patient regains her strength her daughter stated she could stay with her. Patient will need hospital bed because she only has a mattress on floor at daughter's home. Patient feels this would be a safe discharge. CM discussed availability / needs of home health and medical equipment. Patient denies any discharge needs at this time. Patient states she will have family drive her home upon discharge. CM with [facility] Farnsworth RN came to visit with patient at bedside while CM conducted d/c planning eval. CM will continue to follow and assist as needed with discharge planning / needs. [employer]otive [employer] Counterperson: Reyna Blackmon DCPIA - Discharge Planning Initial Assessment Updated by [email or web address]: Reyna Blackmon on 02/10/19 3:55 pm * Is the patient Alert and Oriented? Yes * How many steps to enter\exit or inside your home? * PCP NO PCP - DR MORA -ONC * Pharmacy [facility] * Preadmission Environment Home with Family * ADLs Independent * Equipment None * List name and contact numbers for known caregivers / representatives who currently or will assist patient after discharge: VASQUEZ KOWALSKI - DAUGHTER- [phone] * Verbal permission to speak to the caregivers and representatives has been obtained from the patient. Yes * Community resources currently utilized None * Additional services required to return to the preadmission environment? No * Can the patient safely return to the preadmission environment? Yes * Has this patient been hospitalized within the prior 30 days at any hospital? No Coverage Notice Reviewer: [email or web address] Ana Maria Forbes Notice Issued Date-Time: 02/16/2019 15:14 Notice Type: Patient Choice Letter Notice Delivered To: Patient Relationship to Patient: Self Manager Supplier Name: Delivery Method: HAND - Hand Delivered Merissa Days: Prior Verbal Notification: Recipient Understood Notice: Yes Recipient Signature: Yes Med Rec Note Co-signed by Attending: Coverage Notice Comment: [facility] OR ANY THAT TAKES INS. WILL BE STAYING WITH DAUGHTER IN [place] DP export: 02/17/19 12:36 pm Patient Name: TRISTON KOWALSKI Page [phone] at 1405 All edits/amendments must be made on the electronic document DICTATION DATE: 02/17/19 1404 SENIOR DESIGNER/ART DIRECTOR: LUPE 02/17/19 1404 RPT#: [id number] DC DATE:02/17/19 STATUS: DIS IN [facility] [address] [place] [address] END OF REPORT
== END 2019-02-17 13:00 | disposition home or self-care (01) | DRG 165 ==
LOC: D.SDCHOLD 02-06 07:30 → D.CVICU 02-09 05:00 → D.SDCHOLD 02-09 05:00 → D.CVICU 02-09 08:45
PROVIDERS: Internal Medicine Cardiovascular Disease; Internal Medicine Hematology & Oncology; ADMIT Thoracic Surgery (Cardiothoracic Vascular Surgery); ATTEND Thoracic Surgery (Cardiothoracic Vascular Surgery)
PROC: 0BJ08ZZ Inspection of Tracheobronchial Tree, Via Natural or Artificial Opening Endoscopic (ICD-10-PCS; 2019-02-09)
PROC: 0BTG0ZZ Resection of Left Upper Lung Lobe, Open Approach (ICD-10-PCS; principal; 2019-02-09 07:30)
PROC: 07T70ZZ Resection of Thorax Lymphatic, Open Approach (ICD-10-PCS; 2019-02-09 07:30)
DX: C34.12 Malignant neoplasm of upper lobe, left bronchus or lung (principal); D64.9 Anemia, unspecified; I10 Essential (primary) hypertension; F17.200 Nicotine dependence, unspecified, uncomplicated

== ENCOUNTER → 2019-04-09 12:11 | Outpatient (CLI) | payer MEDICAID ==
[2019-02-14 09:07] VITALS: BMI 39.4
[~2019-04-09 12:11] MED LIST changes: +ALBUTEROL SULF8.5 GM INH; +ASPIRIN EC81 M1 PO; +[UNRECOGNIZED DRUG - OTHER] PO
== END | disposition home or self-care (01) ==
LOC: D.RAD 12:11
PROVIDERS: ATTEND Internal Medicine Cardiovascular Disease
DX: Z98.890 Other specified postprocedural states (principal)